=== PATIENT | male | born 1965 | race Caucasian/White ===

== ENCOUNTER 2016-10-19 06:24 | Inpatient (IN) | payer OTHER ==
[~2016-10-19] VITALS: Ht 182.9 cm; Wt 112.6 kg
[2016-10-19 06:31] VITALS: BP 130/77; PULSE 98; RESP 26; TEMP 98.6; O2SAT 98
[2016-10-19] MEDS ORDERED: OMEP10CA PO (06:36)
[2016-10-19] MEDS ORDERED: SODIUM CHLOR 0.9% 1000 ML INJ 1,000 ML IV SCH (06:41)
[2016-10-19 06:45] VITALS: O2SAT 98
[2016-10-19] MEDS ORDERED: SODIUM CHLORIDE 0.9% FLUSH 10 ML FLUSH IVF PRN (06:45)
[2016-10-19] MEDS ORDERED: ceFAZolin 2 GM PREMIX 50 ML IV ONE (06:45)
[2016-10-19] MEDS ORDERED: DIPHTH/TETANUS/ACEL PERTUSSIS (BOOSTER) 0.5 ML VIAL/PFS IM ONE (06:45)
[2016-10-19 07:07] LABS: AUTOMATED NEUTROPHIL # 16.1 TH/MM3 (1.8-7.7); BASOPHIL # 0.1 TH/MM3 (0-0.2); BASOPHIL % 0.4 % (0.0-2.0); HEMATOCRIT 47.4 % (39.0-51.0); HEMO FLAGS DIFF FINAL; LYMPH % 8.5 % (9.0-44.0); LYMPHOCYTE # 1.6 TH/MM3 (1.0-4.8); MEAN CELL VOLUME 90.9 FL (80.0-100.0); MEAN CORPUSCULAR HEMOGLOBIN 30.5 PG (27.0-34.0); MEAN CORPUSCULAR HGB CONC 33.6 % (32.0-36.0); MONO % 6.4 % (0.0-8.0); NEUT % 84.7 % (16.0-70.0); PLATELET COUNT 246 TH/MM3 (150-450); RED BLOOD COUNT 5.22 MIL/MM3 (4.50-5.90); RED CELL DISTRIBUTION WIDTH 15.1 % (11.6-17.2)
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
[2016-10-19 07:18] LABS: APTT (PATIENT) 23.8 SEC (24.3-30.1); PROTHROMBIN TIME - PATIENT 10.8 SEC (9.8-11.6)
[2016-10-19 07:21] LABS: ALT (GPT) 63 U/L (12-78); ANION GAP 14 MEQ/L (5-15); AST (GOT) 59 U/L (15-37); BICARBONATE 18.7 MEQ/L (21.0-32.0); BLOOD UREA NITROGEN 12 MG/DL (7-18); CHLORIDE 108 MEQ/L (98-107); GLOMERULAR FILTRATION RATE 80 ML/MIN (>89); POTASSIUM 4.2 MEQ/L (3.5-5.1); SODIUM (NA) 141 MEQ/L (136-145)
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
[2016-10-19 07:24] LABS: ALKALINE PHOSPHATASE 74 U/L (45-117); TOTAL BILIRUBIN ADULT 0.4 MG/DL (0.2-1.0)
[2016-10-19] MEDS ORDERED: IOHEXOL 350 MG/ML 10 ML VIAL (for RAD DIAG) IV ONE (08:08)
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
[2016-10-19 11:42] VITALS: BP 135/92; PULSE 85; RESP 18; O2SAT 99
[2016-10-19] MEDS ORDERED: ONDANSETRON HCL 4 MG/2 ML VIAL IV PRN (12:15)
[2016-10-19] MEDS ORDERED: HYDROmorphone HCL PF 1 MG/ML VIAL IV PUSH PRN (12:15)
[2016-10-19] MEDS ORDERED: ACETAMINOPHEN 325 MG TAB PO PRN (12:15)
[2016-10-19] MEDS ORDERED: MISCELLANEOUS NURSING INFORMATION XX SCH (12:15)
[2016-10-19] MEDS ORDERED: CHLORHEXIDINE GLUCONATE 2 % 1 PACK (2 CLOTHS) TOP PRN (12:15)
[2016-10-19] MEDS ORDERED: SODIUM CHLORIDE 0.9% FLUSH 10 ML FLUSH IV FLUSH PRN (12:15)
[2016-10-19] MEDS ORDERED: oxyCODONE/ACETAMINOPHEN 5 MG/325 MG TAB PO PRN (12:15)
[2016-10-19] MEDS ORDERED: ENALAPRILAT 1.25 MG/ML VIAL IV PRN (12:15)
[2016-10-19 15:03] VITALS: BP 144/83; PULSE 104; RESP 18; TEMP 95.6; O2SAT 97
[2016-10-19] MEDS: oxyCODONE/ACETAMINOPHEN 5 MG/325 MG TAB PO PRN ×2 (15:11→21:33)
[2016-10-19] MEDS: CYCLOBENZAPRINE HCL 10 MG TAB PO SCH ×2 (15:11→21:33)
[2016-10-19] MEDS: PANTOPRAZOLE SODIUM 40 MG VIAL IVP SCH (15:11)
[2016-10-19] MEDS: LIDOCAINE HCL 5% PATCH T-DERMAL SCH (15:11)
[2016-10-19] MEDS: SODIUM CHLOR 0.9% 1000 ML INJ 1,000 ML IV SCH ×2 (15:12→21:33)
[2016-10-19 20:30] VITALS: BP 144/91; PULSE 91; RESP 18; TEMP 96.7; O2SAT 98
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
[2016-10-19] MEDS: MAGNESIUM HYDROXIDE SUSP 30 ML CUP PO SCH (21:00)
[2016-10-19] MEDS: DOCUSATE SODIUM 100 MG CAP PO SCH (21:33)
[2016-10-20 00:10] VITALS: BP 135/80; PULSE 70; RESP 18; TEMP 97.7; O2SAT 97
[2016-10-20] MEDS: CYCLOBENZAPRINE HCL 10 MG TAB PO SCH ×2 (03:56→13:20)
[2016-10-20] MEDS: oxyCODONE/ACETAMINOPHEN 5 MG/325 MG TAB PO PRN ×3 (03:57→13:20)
[2016-10-20] MEDS ORDERED: CHLORHEXIDINE GLUCONATE 2 % 1 PACK (2 CLOTHS) TOP SCH (04:00)
[2016-10-20 04:08] VITALS: BP 149/91; PULSE 72; RESP 18; TEMP 96.9; O2SAT 97
[2016-10-20 06:24] LABS: AUTOMATED NEUTROPHIL # 5.5 TH/MM3 (1.8-7.7); BASOPHIL # 0.1 TH/MM3 (0-0.2); BASOPHIL % 0.7 % (0.0-2.0); EOSINOPHIL # 0.1 TH/MM3 (0-0.4); EOSINOPHIL % 1.8 % (0.0-4.0); HEMATOCRIT 39.3 % (39.0-51.0); HEMO FLAGS DIFF FINAL; LYMPH % 21.9 % (9.0-44.0); LYMPHOCYTE # 1.8 TH/MM3 (1.0-4.8); MEAN CELL VOLUME 90.2 FL (80.0-100.0); MEAN CORPUSCULAR HEMOGLOBIN 30.9 PG (27.0-34.0); MEAN CORPUSCULAR HGB CONC 34.3 % (32.0-36.0); MONO % 10.3 % (0.0-8.0); NEUT % 65.3 % (16.0-70.0); PLATELET COUNT 183 TH/MM3 (150-450); RED BLOOD COUNT 4.36 MIL/MM3 (4.50-5.90); RED CELL DISTRIBUTION WIDTH 14.6 % (11.6-17.2); WHITE BLOOD COUNT 8.4 TH/MM3 (4.0-11.0)
[2016-10-20 06:55] LABS: BICARBONATE 24.2 MEQ/L (21.0-32.0); CALCIUM-PROTEIN CORRECTED 7.8 MG/DL (8.5-10.1); POTASSIUM 3.7 MEQ/L (3.5-5.1)
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
[2016-10-20 07:45] VITALS: BP 140/93; PULSE 85; RESP 18; TEMP 96.7; O2SAT 98
[2016-10-20 08:15] VITALS: O2SAT 98
[2016-10-20] MEDS: DOCUSATE SODIUM 100 MG CAP PO SCH (08:37)
[2016-10-20] MEDS: LIDOCAINE HCL 5% PATCH T-DERMAL SCH (08:38)
[2016-10-20] MEDS: SODIUM CHLOR 0.9% 1000 ML INJ 1,000 ML IV SCH (08:39)
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
--- NOTE | 2016-10-20 11:15 | HHI.PR ---
Subjective Subjective Notes PTD: 1 Objective Vitals/I&O Vital Signs Date Time Temp Pulse Resp B/P Pulse Ox O2 Delivery O2 Flow Rate FiO2 10/20/16 08:15 98 10/20/16 07:45 96.7 85 18 140/93 10/19/16 18:44 Room Air Labs Laboratory Tests Test 10/19/16 10/20/16 17:40 05:50 Nasal Screen MRSA (PCR) MRSA NOT DETECTED White Blood Count 8.4 Red Blood Count 4.36 Hemoglobin 13.5 Hematocrit 39.3 Mean Corpuscular Volume 90.2 Mean Corpuscular Hemoglobin 30.9 Mean Corpuscular Hemoglobin 34.3 Concent Red Cell Distribution Width 14.6 Platelet Count 183 Mean Platelet Volume 7.8 Neutrophils (%) (Auto) 65.3 Lymphocytes (%) (Auto) 21.9 Monocytes (%) (Auto) 10.3 Eosinophils (%) (Auto) 1.8 Basophils (%) (Auto) 0.7 Neutrophils # (Auto) 5.5 Lymphocytes # (Auto) 1.8 Monocytes # (Auto) 0.9 Eosinophils # (Auto) 0.1 Basophils # (Auto) 0.1 CBC Comment DIFF FINAL Differential Comment Sodium Level 138 Potassium Level 3.7 Chloride Level 106 Carbon Dioxide Level 24.2 Anion Gap 8 Blood Urea Nitrogen 15 Creatinine 0.86 Estimat Glomerular Filtration 95 Rate Random Glucose 102 Calcium Level 7.4 Protein Corrected Calcium 7.8 Total Bilirubin 1.0 Aspartate Amino Transf 71 (AST/SGOT) Alanine Aminotransferase 48 (ALT/SGPT) Alkaline Phosphatase 61 Total Protein 6.3 Albumin 2.8 Glenna Mackey Oct 20, 2016 11:15
[2016-10-20 11:39] VITALS: BP 138/72; PULSE 82; RESP 18; TEMP 96.5; O2SAT 96
[2016-10-20] MEDS ORDERED: PERC5TAB12 PO (12:16)
[2016-10-20] MEDS: PANTOPRAZOLE SODIUM 40 MG VIAL IVP SCH (12:23)
[2016-10-20] MEDS ORDERED: DOCU1CAP39 PO (13:32)
[2016-10-20] MEDS ORDERED: MAGN400S PO (13:32)
[2016-10-20] MEDS ORDERED: CYCL1TAB29 PO (13:32)
[2016-10-20] MEDS: MAGNESIUM HYDROXIDE SUSP 30 ML CUP PO SCH (15:00)
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
== END 2016-10-20 15:13 | disposition home or self-care (01) | DRG 184 ==
LOC: NEPC 06:24 → NEDA 09:06 → OBSVTOIN 12:16 → N06B 15:16
PROVIDERS: ADMIT Surgery; ATTEND Surgery
DX: S22.42XA Multiple fractures of ribs, left side, initial encounter for closed fracture (principal); S27.321A Contusion of lung, unilateral, initial encounter; S22.011A Stable burst fracture of first thoracic vertebra, initial encounter for closed fracture; S32.029A Unspecified fracture of second lumbar vertebra, initial encounter for closed fracture; S22.021A Stable burst fracture of second thoracic vertebra, initial encounter for closed fracture; S20.311A Abrasion of right front wall of thorax, initial encounter; S30.811A Abrasion of abdominal wall, initial encounter; S80.812A Abrasion, left lower leg, initial encounter; S80.811A Abrasion, right lower leg, initial encounter; K21.9 Gastro-esophageal reflux disease without esophagitis; K57.90 Diverticulosis of intestine, part unspecified, without perforation or abscess without bleeding; F10.129 Alcohol abuse with intoxication, unspecified; V29.9XXA Motorcycle rider (driver) (passenger) injured in unspecified traffic accident, initial encounter; Y90.6 Blood alcohol level of 120-199 mg/100 ml
CPT/HCPCS: 70450; 71010; 71260; 72125; 72128; 72131; 72146; 72170; 74177; 80053; 80307; 83690; 85025; 85384; 85610; 85730; 86850; 86900; 86901; 87641; 90715; 94150; 94640; 94667; 94668; 96365; 96372; C9113; J0690; J7030; Q9967